=== PATIENT | male | born 1980 | race Caucasian/White ===

== ENCOUNTER → 2020-01-25 10:14 | Outpatient (BNVA) | payer OTHER, SELFPAY | PROVIDERS: Visit Provider Nurse Practitioner Family | DX: Z11.3 Encounter for screening for infections with a predominantly sexual mode of transmission (principal); N50.89 Other specified disorders of the male genital organs; H60.501 Unspecified acute noninfective otitis externa, right ear | CPT/HCPCS: 86592; 87086; 87491; 87530; 87591; 87806 ==

== ENCOUNTER → 2020-10-03 08:57 | Outpatient (BNVA) | payer OTHER, SELFPAY | PROVIDERS: Visit Provider Nurse Practitioner Family | DX: Z13.6 Encounter for screening for cardiovascular disorders (principal); F32.9 Major depressive disorder, single episode, unspecified; F41.9 Anxiety disorder, unspecified; F10.10 Alcohol abuse, uncomplicated; Z12.5 Encounter for screening for malignant neoplasm of prostate | CPT/HCPCS: 80053; 80061; 82607; 84443; 85025; G0103 ==

== ENCOUNTER → 2020-12-25 15:43 | Outpatient (BNVA) | payer OTHER, SELFPAY | PROVIDERS: Visit Provider Nurse Practitioner Family | DX: R53.83 Other fatigue (principal); R53.82 Chronic fatigue, unspecified; F10.10 Alcohol abuse, uncomplicated; F32.9 Major depressive disorder, single episode, unspecified; F41.9 Anxiety disorder, unspecified | CPT/HCPCS: 80053; 82306; 82607; 84403; 84443; 85025 ==

== ENCOUNTER 2021-06-07 12:38 | Outpatient (CLI) | payer OTHER, SELFPAY ==
--- NOTE | 2021-06-07 13:09 | XR_ITS ---
WS: [id number] LUMBAR SPINE: 3 VIEWS TECHNIQUE: AP, lateral and L5-S1 spot. HISTORY: M54.50 - Low back pain, unspecified COMPARISON: None available. Lumbar vertebra are normally aligned. No loss of disc space or vertebral body height. SI joints are symmetric bilaterally. No soft tissue abnormalities. XR/XR lumbar spine 2-3V* [id number] IMPRESSION: Normal lumbar spine.
--- NOTE | 2021-06-07 13:09 | XR_ITS ---
WS: [id number] ABDOMEN 1 VIEW(S) HISTORY: R10.9 - Unspecified abdominal pain, LEFT flank pain. COMPARISON: None available. Normal bowel gas pattern. No calcifications over the kidneys. There are a few calcifications in the pelvis. 3 mm calcification in the LEFT hemipelvis could be a phlebolith or ureteral calcification. No bone abnormality. XR/XR KUB [id number] IMPRESSION: 1. No renal calcifications identified. 2. Several calcifications in the true pelvis. 3 mm LEFT pelvis calcification c ould be within the distal LEFT ureter or phlebolith. For confirmation noncontra st renal stone CT could be obtained.
== END 2021-06-07 12:39 | disposition home or self-care (01) ==
LOC: RAD 12:42
PROVIDERS: Visit Provider Nurse Practitioner Family
DX: R10.9 Unspecified abdominal pain (principal); M54.50 Low back pain, unspecified
CPT/HCPCS: 72100; 74018; 80053; 81000; 84153; 85025

== ENCOUNTER 2021-06-11 07:50 | Outpatient (CLI) | payer OTHER, SELFPAY ==
--- NOTE | 2021-06-11 08:16 | XRR_ITS ---
PROCEDURE INFORMATION: Exam: XR Abdomen Exam date and time: 06/11/2021 8:16 AM Age: 40 years old Clinical indication: Kidney stone. Prior appendectomy. TECHNIQUE: Imaging protocol: XR of the abdomen. Views: Frontal supine view of the abdomen. 1 View. COMPARISON: CR XR KUB [id number] 06/07/2021 1:33 PM FINDINGS: Gastrointestinal tract: Nonobstructive bowel gas pattern. Moderate stool in the colon; query constipation. Intraperitoneal space: No gross free air. Organs: No definite kidney stone is identified. Vasculature: There are multiple small calcifications in the pelvis that likely represent phleboliths. It is difficult to exclude a ureteral stone. If clinically concerned for ureteral stone, recommend CT of the abdomen and pelvis without intravenous contrast. Bones/joints: No gross acute fracture. XR/XR KUB [id number] IMPRESSION: 1. Multiple small calcifications in the pelvis that likely represent phleboliths. It is difficult to exclude a ureteral stone. If clinically concerned for ureteral stone, recommend CT of the abdomen and pelvis without intravenous contrast. 2. No definite kidney stone. 3. Moderate stool in the colon; query constipation.
== END 2021-06-11 07:51 | disposition home or self-care (01) ==
PROVIDERS: PCP Urology; Visit Provider Urology
DX: N20.0 Calculus of kidney (principal); Q42.8 Congenital absence, atresia and stenosis of other parts of large intestine
CPT/HCPCS: 74018; 81003

== ENCOUNTER 2022-08-01 10:16 | Emergency (ER) | payer OTHER, SELFPAY ==
[2022-08-01 10:17] VITALS: BP 123/84; PULSE 63; RESP 14; TEMP 36.5; O2SAT 96; BMI 32.9
--- NOTE | 2022-08-01 10:39 | CT_ITS ---
WS: [id number] CT HEAD TECHNIQUE: Noncontrast CT of the head obtained from the skullbase to the vertex. CLINICAL INFORMATION: syncopal episode, w/ possible seizure like activity COMPARISON: None. DLP: 1145.[address] scans at [facility] use at least one of these dose optimization techniques: automated e xposure control; mA and/or kV adjustment per patient size (includes targeted exams where dose is matc hed to clinical indication); or iterative reconstruction. FINDINGS: No evidence of intracranial hemorrhage or mass effect. Ventricular system and basal cisterns are judge nt. No extra-axial fluid collections. No evidence of mass or mass effect. Normal daniel-white differen tiation. Small amount of fluid and mucosal thickening in the maxillary sinuses. Mastoid air cells well aerated . CT/CT head wo con* [id number] IMPRESSION: 1. No evidence of intracranial hemorrhage or mass effect. 2. No acute intracranial findings.
--- NOTE | 2022-08-01 10:39 | XR_ITS ---
WS: [id number] Exam: XR chest 1V portable [id number] Date/Time of Exam: 08/01/2022 10:49 AM Reason For Exam: Syncopal episode No priors. The lungs are fully expanded and clear. No pleural effusions. Thickening of the minor fissure on the right. Normal cardiomediastinal silhouette and regional bony elements. XR/XR chest 1V portable [id number] IMPRESSION: 1. No acute process noted. 2. Thickening of the minor fissure on the right.
--- NOTE | 2022-08-01 10:39 | ECG_ITS ---
[facility] Test Date: 2022-08-01 Pat Name: Jaime Whitney Department: Room: Gender: Male Staffing Administrator: : [id number] Requested By: Amor Mckenzie Order Number: [id number] Segura MD: Sherry Murphy M.D. Measurements Intervals [place] Rate: 63 P: 29 MS: 129 QRS: 21 QRSD: 90 T: 12 QT: 382 QTc: 392 Interpretive Statements SINUS RHYTHM No previous ECG available for comparison Electronically Signed On 08-02-2022 16:31:15 CDT by Sherry Murphy M.D. [email or web address]
--- NOTE | 2022-08-01 10:45 | W.ED.SYNCOPE ---
Documented by User: RAMAKRISHNA Guerin 08/02/22 07:29 HPI - Syncope General: Chief Complaint: Syncope Stated Complaint: SYNCOPAL EPISODE Time Seen by Provider: 08/01/22 10:25 History of Present Illness: Patient is a 42-year-old male that comes to the ED via EMS after syncopal episode. Patient was at [facility] and getting blood drawn and had a syncopal episode. Patient said he has had syncopal episodes after blood draws in the past. He states that he was getting his blood drawn and started feeling unwell and was having some shortness of breath and chest pressure and then he passed out. The staff at clinic said when patient passed out he had some seizure-like activity and full body jerking movements. When patient came to he denies having any chest pain or shortness of breath afterwards. He describes just generalized malaise. Denies any headache, pain, nausea/vomiting, vision changes, numbness tingling or weakness to 1 side of his body or face. Associated symptoms: Deny abdominal pain, chest pain, fever(s), headache(s) or nausea Review of Systems Const: Denies: fever(s), chills or fatigue Eyes: Denies: change in vision or eye discomfort ENMT: Denies: throat pain, odynophagia, nasal discharge or nasal congestion Card: Reports: syncope; Denies: chest pain, palpitations, edema, swelling of feet/ankles, dyspnea on exertion or orthopnea Resp: Denies: dyspnea, productive cough or non-productive cough GI: Denies: abdominal pain, nausea, vomiting, diarrhea, constipation or hematochezia : Denies: flank pain, difficulty urinating, dysuria or hematuria Musc: Denies: neck pain, back pain or extremity swelling Skin/Breast: Denies: rash or new lesions Neuro: Denies: headache(s), numbness in extremities or weakness in extremities PFSH ED PFSH: Medical History Anxiety Bilateral otitis externa Hypertension Surgical History History of repair of ACL Hx of appendectomy Family History Father Cancer Prostate Diabetes Hyperlipidemia Son Diabetes Family/Other Diabetes Hyperlipidemia Hypertension Denies family history of Clotting disorder Bleeding disorder Social History Smoking and tobacco status: former smoker Quit status (tobacco): has quit using tobacco Year quit tobacco: 2019 Former quit date comment: quit 5 months ago; smoked x Second hand smoke exposure: Yes Alcohol intake: former Substance/Drug Use: never Adopted: No Caregiver/support person: Yes Lives independently: Yes Household members: spouse and children Marital status: service: No Current occupational status: employed Current occupation: [employer] Current gender identity: Male Special katy needs: No Agree to transfusion: Yes Physical Exam Const: COMMON NORMALS: no acute distress, patient oriented x3 and alert HENMT: COMMON NORMALS: normocephalic HEAD & SCALP: normocephalic MOUTH: Normal oral and palatal mucosa present THROAT: posterior oropharynx normal and uvula midline Eye: COMMON NORMALS: Equal, round and reactive pupils present and EOMs intact bilaterally GENERAL EYE: appearance normal, both eyes and all related structures PUPIL: Yes Equal, round and reactive pupils present Neck/C-Spine: COMMON NORMALS: supple GENERAL: Yes normal visual inspection Lymph: LYMPHATIC: no lymphadenopathy noted Resp: COMMON NORMALS: normal respiratory effort, No retractions, No use of accessory muscles and clear to auscultation bilaterally AUSCULTATION: clear to auscultation bilaterally Cardio: COMMON NORMALS: regular rate, regular rhythm, S1 normal heart sound present, S2 normal heart sound present, No gallops present (Cardio), No clicks present (Cardio), No murmurs present (Cardio) and Peripheral pulses 2+ throughout RATE: regular rate RHYTHM: regular rhythm HEART SOUNDS: S1 normal heart sound present and S2 normal heart sound present PERIPHERAL PULSES: Peripheral pulses 2+ throughout GI: COMMON NORMALS: Normal to inspection, nondistended, normoactive bowel sounds present, Soft to palpation, non-tender and no masses PALPATION: Yes Soft to palpation : COMMON NORMALS: Yes no CVA tenderness BLADDER/KIDNEY EXAM: Yes no CVA tenderness Back/Pelvis: COMMON NORMALS: no CVA tenderness Extremity: GENERAL: Yes normal exam except as noted Neuro: COMMON NORMALS: patient oriented x3, CN's II-XII intact bilaterally, moves all extremities, no focal motor deficits and no sensory deficits noted SENSORIUM/ORIENTATION: Yes alert SENSORY EXAM: Yes extremities (intact) MOTOR EXAM: 5/5 motor strength present throughout Skin: COMMON NORMALS: no rashes or lesions noted GENERAL SKIN EXAM: no rashes or lesions noted and dry skin Course Vital Signs: Vital signs: Vital Signs Temperature 97.7 F 08/01/22 12:31 Pulse Rate 63 08/01/22 12:31 Respiratory Rate 14 08/01/22 12:31 Blood Pressure 123/84 08/01/22 12:31 Pulse Oximetry 96 08/01/22 12:31 Oxygen Delivery Me thod Room Air 08/01/22 10:17 MDM - Syncope Medical Decision Making Patient is a 42-year-old male that comes to the ED via EMS after syncopal episode. Patient was at [facility] and getting blood drawn and had a syncopal episode. Patient said he has had syncopal episodes after blood draws in the past. He states that he was getting his blood drawn and started feeling unwell and was having some shortness of breath and chest pressure and then he passed out. The staff at clinic said when patient passed out he had some seizure-like activity and full body jerking movements. When patient came to he denies having any chest pain or shortness of breath afterwards. He describes just generalized malaise. Denies any headache, pain, nausea/vomiting, vision changes, numbness tingling or weakness to 1 side of his body or face. Vitals are stable. Patient appears nontoxic in no acute distress or pain. Neuro exam shows no deficits and the rest of exam is benign. Labs are all unremarkable. Troponin negative. Chest x-ray shows no acute findings. EKG showed no acute findings. Patient was given 1 L of IV fluids and was stable for discharge home. Diagnosed with vasovagal syncopal episode. Told to follow-up with his PCP in the next week for reevaluation. Return to ED precautions given. Patient understood and agreed with plan. Lab Data I reviewed the patient's lab results. 08/01/22 11:01 08/01/22 11:01 Radiology Impressions Chest X-Ray 08/01/22 10:39 IMPRESSION: 1. No acute process noted. 2. Thickening of the minor fissure on the right. Head CT 08/01/22 10:39 IMPRESSION: 1. No evidence of intracranial hemorrhage or mass effect. 2. No acute intracranial findings. Laboratory Results WBC 9.9 10^3/uL (4.0-10.0) 08/01/22 11:01 RBC 5.17 10^6/uL (4.1-5.3) 08/01/22 11:01 Hgb 14.9 g/dL (11.7-16.6) 08/01/22 11:01 Hct 45.0 % (42.0-52.0) 08/01/22 11:01 MCV 87.0 fl (80-94) 08/01/22 11:01 MCH 28.8 pg (28.0-34.0) 08/01/22 11:01 MCHC 33.1 g/dL (30.0-36.0) 08/01/22 11:01 RDW 12.6 % (12.1-15.1) 08/01/22 11:01 Plt Count 283 10^3/cmm (130-400) 08/01/22 11:01 MPV 9.2 fL (7.4-10.4) 08/01/22 11:01 Lymph % (Auto) Not Reportable 08/01/22 11:01 [place] % (Auto) Not Reportable 08/01/22 11:01 Lymph # (Auto) Not Reportable 08/01/22 11:01 [place] # (Auto) Not Reportable 08/01/22 11:01 Total Counted 100 (0-100) 08/01/22 11:01 Atypical Lymphs % 0.0 % (0-5) 08/01/22 11:01 Absolute Neutrophils 6.5 10^3/cmm (1.4-6.5) 08/01/22 11:01 Segmented Neutrophils 56 % 08/01/22 11:01 Abs Segm Neuts (Man) 5.5 10/cmm (1.6-7.1) 08/01/22 11:01 Band Neutrophils 10.0 % 08/01/22 11:01 Abs Band Neuts (Man) 1.0 10^3/cmm (0.0-1.2) 08/01/22 11:01 Absolute Lymphocytes 2.5 10^3/cmm (1.2-3.4) 08/01/22 11:01 Lymphocytes (Manual) 25 % 08/01/22 11:01 Monocytes (Manual) 4.0 % 08/01/22 11:01 Absolute Monocytes 0.4 10^3/cmm (0.1-0.6) 08/01/22 11:01 Eosinophils (Manual) 1 % 08/01/22 11:01 Absolute Eosinophils 0.0 10^3/cmm (0.0-0.7) 08/01/22 11:01 Basophils (Manual) 0.0 % 08/01/22 11:01 Absolute Basophils 0.0 10^3/cmm (0.0-0.2) 08/01/22 11:01 Metamyelocytes 3.0 % 08/01/22 11:01 Myelocytes 1.0 % 08/01/22 11:01 Platelet Estimate Normal (Normal) 08/01/22 11:01 Sodium 141 mmol/L (136-145) 08/01/22 11:01 Potassium 3.6 mmol/L (3.5-5.1) 08/01/22 11:01 Chloride 104 mmol/L (98-107) 08/01/22 11:01 Carbon Dioxide 24 mmol/L (22-29) 08/01/22 11:01 Anion Gap 16.6 (5-19) 08/01/22 11:01 BUN 21 mg/dL (6-20) H 08/01/22 11:01 Creatinine 1.0 mg/dL (0.7-1.2) 08/01/22 11:01 GFR Calculation 81.6 mL/min (90-130) L 08/01/22 11:01 Glucose 105 mg/dL (65-115) 08/01/22 11:01 Calculated Osmolality 295 mOsm/kg (285-295) 08/01/22 11:01 Calcium 8.7 mg/dL (8.5-10.5) 08/01/22 11:01 Total Bilirubin 0.3 mg/dL (0.15-1.2) 08/01/22 11:01 AST 14 U/L (0-40) 08/01/22 11:01 ALT 32 U/L (0-41) 08/01/22 11:01 Alkaline Phosphatase 58 U/L (40-130) 08/01/22 11:01 Troponin T Baseline 6 ng/L (0-15) 08/01/22 11:01 Total Protein 6.7 g/dL (6.6-8.7) 08/01/22 11:01 Albumin 4.2 g/dL (3.5-5.2) 08/01/22 11:01 Globulin 2.5 g/dL (1.3-4.6) 08/01/22 11:01 EKG Data EKG 1: EKG interpretation date: 08/01/22 Interpretation: Normal sinus rhythm, 63 bpm, no ST segment elevation or depression seen. Discharge Plan Discharge Patient Disposition: Home Clinical Impression: Episode of syncope Qualifiers: Syncope type: vasovagal syncope Qualified Code(s): R55 - Syncope and collapse Condition: Stable Prescriptions: No Action fexofenadine [Sasha Allergy] 60 mg tablet 60 mg PO DAILY GNC METABOLISM 1 tab PO DAILY amoxicillin-pot clavulanate 875-125 mg tablet 1 tab PO BID Qty: 20 0RF levofloxacin 750 mg tablet 750 mg PO DAILY 5 Days Qty: 5 0RF buspirone 10 mg tablet 10 mg PO DAILY Probiotic 5 billion cell Capsule, Sprinkle 1 cap PO DAILY venlafaxine 150 mg capsule,extended release 24hr 150 mg PO QAM Discharge Orders: Discharge ED (Routine); Ordered 08/01/22 Ordered By: Amor Mckenzie Referrals: Edward Rolle MD [Primary Care Provider] - Discharge Diet: Regular Discharge Activity: Increase activity as tolerated Patient Instructions: Syncope (ED) Activity Restrictions/Additional Instructions: Follow-up with medical provider as directed in the next 5 to 7 days for reevaluation. Rest today and limit activity. Continue taking all home medications as previously prescribed. Return to the ER or your medical provider if condition worsens. Please read and understand discharge instructions. Thank you for choosing [facility] for your healthcare needs today. Please realize this is an emergency room and that we are providing you with a medical screening exam and this may not be complete and all inclusive of all the testing and or work up that you may need to determine your ailment or severity of your illness. It is very important that you follow up as instructed or that you return to the Emergency Department should you have concerns or if your condition changes or worsens in any way. Coding Level of Care Code ED Room Service Associate for Chg Fwd Documented by User: Luis Armando Middleton DO 08/02/22 07:44 HPI - Syncope General: Chief Complaint: Syncope Stated Complaint: SYNCOPAL EPISODE Time Seen by Provider: 08/01/22 10:25 PFSH ED PFSH: Medical History Anxiety Bilateral otitis externa Hypertension Surgical History History of repair of ACL Hx of appendectomy Family History Father Cancer Prostate Diabetes Hyperlipidemia Son Diabetes Family/Other Diabetes Hyperlipidemia Hypertension Denies family history of Clotting disorder Bleeding disorder Social History Smoking and tobacco status: former smoker Quit status (tobacco): has quit using tobacco Year quit tobacco: 2019 Former quit date comment: quit 5 months ago; smoked x Second hand smoke exposure: Yes Alcohol intake: former Substance/Drug Use: never Adopted: No Caregiver/support person: Yes Lives independently: Yes Household members: spouse and children Marital status: service: No Current occupational status: employed Current occupation: [employer] Current gender identity: Male Special katy needs: No Agree to transfusion: Yes Course Vital Signs: Vital signs: Vital Signs Temperature 97.7 F 08/01/22 12:31 Pulse Rate 63 08/01/22 12:31 Respiratory Rate 14 08/01/22 12:31 Blood Pressure 123/84 08/01/22 12:31 Pulse Oximetry 96 08/01/22 12:31 Oxygen Delivery Me thod Room Air 08/01/22 10:17 MDM - Syncope Medical Decision Making Patient is a 42-year-old male that comes to the ED via EMS after syncopal episode. Patient was at [facility] and getting blood drawn and had a syncopal episode. Patient said he has had syncopal episodes after blood draws in the past. He states that he was getting his blood drawn and started feeling unwell and was having some shortness of breath and chest pressure and then he passed out. The staff at clinic said when patient passed out he had some seizure-like activity and full body jerking movements. When patient came to he denies having any chest pain or shortness of breath afterwards. He describes just generalized malaise. Denies any headache, pain, nausea/vomiting, vision changes, numbness tingling or weakness to 1 side of his body or face. Vitals are stable. Patient appears nontoxic in no acute distress or pain. Neuro exam shows no deficits and the rest of exam is benign. Labs are all unremarkable. Troponin negative. Chest x-ray shows no acute findings. EKG showed no acute findings. Patient was given 1 L of IV fluids and was stable for discharge home. Diagnosed with vasovagal syncopal episode. Told to follow-up with his PCP in the next week for reevaluation. Return to ED precautions given. Patient understood and agreed with plan. Chart reviewed and patient discussed with midlevel. Agree with assessment and plan. Lab Data 08/01/22 11:01 08/01/22 11:01 Radiology Impressions Chest X-Ray 08/01/22 10:39 IMPRESSION: 1. No acute process noted. 2. Thickening of the minor fissure on the right. Head CT 08/01/22 10:39 IMPRESSION: 1. No evidence of intracranial hemorrhage or mass effect. 2. No acute intracranial findings. Laboratory Results WBC 9.9 10^3/uL (4.0-10.0) 08/01/22 11:01 RBC 5.17 10^6/uL (4.1-5.3) 08/01/22 11:01 Hgb 14.9 g/dL (11.7-16.6) 08/01/22 11:01 Hct 45.0 % (42.0-52.0) 08/01/22 11:01 MCV 87.0 fl (80-94) 08/01/22 11:01 MCH 28.8 pg (28.0-34.0) 08/01/22 11:01 MCHC 33.1 g/dL (30.0-36.0) 08/01/22 11:01 RDW 12.6 % (12.1-15.1) 08/01/22 11:01 Plt Count 283 10^3/cmm (130-400) 08/01/22 11:01 MPV 9.2 fL (7.4-10.4) 08/01/22 11:01 Lymph % (Auto) Not Reportable 08/01/22 11:01 [place] % (Auto) Not Reportable 08/01/22 11:01 Lymph # (Auto) Not Reportable 08/01/22 11:01 [place] # (Auto) Not Reportable 08/01/22 11:01 Total Counted 100 (0-100) 08/01/22 11:01 Atypical Lymphs % 0.0 % (0-5) 08/01/22 11:01 Absolute Neutrophils 6.5 10^3/cmm (1.4-6.5) 08/01/22 11:01 Segmented Neutrophils 56 % 08/01/22 11:01 Abs Segm Neuts (Man) 5.5 10/cmm (1.6-7.1) 08/01/22 11:01 Band Neutrophils 10.0 % 08/01/22 11:01 Abs Band Neuts (Man) 1.0 10^3/cmm (0.0-1.2) 08/01/22 11:01 Absolute Lymphocytes 2.5 10^3/cmm (1.2-3.4) 08/01/22 11:01 Lymphocytes (Manual) 25 % 08/01/22 11:01 Monocytes (Manual) 4.0 % 08/01/22 11:01 Absolute Monocytes 0.4 10^3/cmm (0.1-0.6) 08/01/22 11:01 Eosinophils (Manual) 1 % 08/01/22 11:01 Absolute Eosinophils 0.0 10^3/cmm (0.0-0.7) 08/01/22 11:01 Basophils (Manual) 0.0 % 08/01/22 11:01 Absolute Basophils 0.0 10^3/cmm (0.0-0.2) 08/01/22 11:01 Metamyelocytes 3.0 % 08/01/22 11:01 Myelocytes 1.0 % 08/01/22 11:01 Platelet Estimate Normal (Normal) 08/01/22 11:01 Sodium 141 mmol/L (136-145) 08/01/22 11:01 Potassium 3.6 mmol/L (3.5-5.1) 08/01/22 11:01 Chloride 104 mmol/L (98-107) 08/01/22 11:01 Carbon Dioxide 24 mmol/L (22-29) 08/01/22 11:01 Anion Gap 16.6 (5-19) 08/01/22 11:01 BUN 21 mg/dL (6-20) H 08/01/22 11:01 Creatinine 1.0 mg/dL (0.7-1.2) 08/01/22 11:01 GFR Calculation 81.6 mL/min (90-130) L 08/01/22 11:01 Glucose 105 mg/dL (65-115) 08/01/22 11:01 Calculated Osmolality 295 mOsm/kg (285-295) 08/01/22 11:01 Calcium 8.7 mg/dL (8.5-10.5) 08/01/22 11:01 Total Bilirubin 0.3 mg/dL (0.15-1.2) 08/01/22 11:01 AST 14 U/L (0-40) 08/01/22 11:01 ALT 32 U/L (0-41) 08/01/22 11:01 Alkaline Phosphatase 58 U/L (40-130) 08/01/22 11:01 Troponin T Baseline 6 ng/L (0-15) 08/01/22 11:01 Total Protein 6.7 g/dL (6.6-8.7) 08/01/22 11:01 Albumin 4.2 g/dL (3.5-5.2) 08/01/22 11:01 Globulin 2.5 g/dL (1.3-4.6) 08/01/22 11:01 Discharge Plan Discharge Patient Disposition: Home Clinical Impression: Episode of syncope Qualifiers: Syncope type: vasovagal syncope Qualified Code(s): R55 - Syncope and collapse Condition: Stable Prescriptions: No Action fexofenadine [Sasha Allergy] 60 mg tablet 60 mg PO DAILY GNC METABOLISM 1 tab PO DAILY amoxicillin-pot clavulanate 875-125 mg tablet 1 tab PO BID Qty: 20 0RF levofloxacin 750 mg tablet 750 mg PO DAILY 5 Days Qty: 5 0RF buspirone 10 mg tablet 10 mg PO DAILY Probiotic 5 billion cell Capsule, Sprinkle 1 cap PO DAILY venlafaxine 150 mg capsule,extended release 24hr 150 mg PO QAM Discharge Orders: Discharge ED (Routine); Ordered 08/01/22 Ordered By: Amor Mckenzie Referrals: dEward Rolle MD [Primary Care Provider] - Discharge Diet: Regular Discharge Activity: Increase activity as tolerated Patient Instructions: Syncope (ED) Activity Restrictions/Additional Instructions: Follow-up with medical provider as directed in the next 5 to 7 days for reevaluation. Rest today and limit activity. Continue taking all home medications as previously prescribed. Return to the ER or your medical provider if condition worsens. Please read and understand discharge instructions. Thank you for choosing [facility] for your healthcare needs today. Please realize this is an emergency room and that we are providing you with a medical screening exam and this may not be complete and all inclusive of all the testing and or work up that you may need to determine your ailment or severity of your illness. It is very important that you follow up as instructed or that you return to the Emergency Department should you have concerns or if your condition changes or worsens in any way. Coding Level of Care Code ED Room Service Associate for Sienna Shukla
[2022-08-01] MEDS: sodium chloride 0.9% 1,000 ML 999 ML IV (10:52)
[2022-08-01 11:12] LABS: Hemoglobin 14.9 g/dL (11.7-16.6); Mean Corpuscular HGB Conc 33.1 g/dL (30.0-36.0); Mean Corpuscular Hemoglobin 28.8 pg (28.0-34.0); Mean Platelet Volume 9.2 fL (7.4-10.4); Platelet Count 283 10^3/cmm (130-400); Red Blood Count 5.17 10^6/uL (4.1-5.3); Red Cell Distribution Width 12.6 % (12.1-15.1); White Blood Count 9.9 10^3/uL (4.0-10.0)
[2022-08-01 11:31] LABS: Alanine Aminotransferase 32 U/L (0-41); Albumin Level 4.2 g/dL (3.5-5.2); Alkaline Phosphatase 58 U/L (40-130); Anion Gap 16.6 (5-19); Aspartate Amino Transferase 14 U/L (0-40); Blood Urea Nitrogen 21 mg/dL (6-20); Calcium 8.7 mg/dL (8.5-10.5); Carbon Dioxide 24 mmol/L (22-29); Chloride 104 mmol/L (98-107); Globulin 2.5 g/dL (1.3-4.6); Glomerular Filtration Rate 81.6 mL/min (90-130); Glucose 105 mg/dL (65-115); Osmolality Calculated 295 mOsm/kg (285-295); Potassium 3.6 mmol/L (3.5-5.1); Sodium 141 mmol/L (136-145); Total Bilirubin 0.3 mg/dL (0.15-1.2); Total Protein 6.7 g/dL (6.6-8.7)
[2022-08-01 11:32] LABS: Troponin(5th) Baseline 6 ng/L (0-15)
[2022-08-01 12:02] LABS: Slide Review Slide Review Perform
[2022-08-01 12:06] LABS: Absolute Segmented Neutrophil 5.5 10/cmm (1.6-7.1); Eosinophils 1 %; Lymphocytes 25 %; Monocytes Absolute 0.4 10^3/cmm (0.1-0.6); Segmented Neutrophils 56 %; Total Cells Counted 100 (0-100)
[2022-08-01 12:07] LABS: Absolute Neutrophil 6.5 10^3/cmm (1.4-6.5); Lymphocytes Absolute 2.5 10^3/cmm (1.2-3.4); Platelet Estimate Normal (Normal)
[2022-08-01 12:31] VITALS: BP 123/84; PULSE 63; RESP 14; TEMP 36.5; O2SAT 96
== END 2022-08-01 12:34 | disposition home or self-care (01) ==
PROVIDERS: Emergency Provider Physician Assistant; PCP Urology
DX: R55 Syncope and collapse (principal); I10 Essential (primary) hypertension; Z87.891 Personal history of nicotine dependence
CPT/HCPCS: 70450; 71045; 80053; 80061; 84443; 84484; 85007; 85025; 93005; 96360; 99285; G0103; J7030

== ENCOUNTER → 2023-01-07 08:11 | Outpatient (BNVA) | payer OTHER, SELFPAY | PROVIDERS: PCP Nurse Practitioner Family; Visit Provider Nurse Practitioner Family | DX: F41.9 Anxiety disorder, unspecified (principal); F32.9 Major depressive disorder, single episode, unspecified; Z13.6 Encounter for screening for cardiovascular disorders; N20.0 Calculus of kidney; E55.9 Vitamin D deficiency, unspecified | CPT/HCPCS: 80053; 80061; 82306; 82607; 83735; 84403; 84443; 85025 ==

== ENCOUNTER → 2024-10-13 08:30 | Outpatient (BNVA) | payer OTHER, SELFPAY | PROVIDERS: PCP Nurse Practitioner Family; Visit Provider Nurse Practitioner Family | DX: R10.9 Unspecified abdominal pain (principal) | CPT/HCPCS: 74018; 80053; 80061; 84153; 84403; 84443; 85025 ==

== ENCOUNTER → 2024-12-15 08:28 | Outpatient (BNVA) | payer OTHER, SELFPAY | PROVIDERS: PCP Nurse Practitioner Family; Visit Provider Nurse Practitioner Family | DX: R79.89 Other specified abnormal findings of blood chemistry (principal) | CPT/HCPCS: 80053; 82670; 83002; 84146; 84270; 84403; 85025 ==

== ENCOUNTER → 2025-03-22 13:10 | Outpatient (BNVA) | payer OTHER, SELFPAY | PROVIDERS: PCP Nurse Practitioner Family; Visit Provider Nurse Practitioner Family | DX: R39.11 Hesitancy of micturition (principal); R79.89 Other specified abnormal findings of blood chemistry | CPT/HCPCS: 80053; 82670; 84146; 84403; 85025 ==